=== PATIENT | male | born 1965 | race African-American/Black ===

== ENCOUNTER 2020-02-04 12:54 | Outpatient (REF) | payer OTHER, SELFPAY ==
--- NOTE | 2020-02-04 14:12 | CT_ITS ---
EXAMINATION: CT ANGIOGRAM CHEST CLINICAL INFORMATION: Precordial pain. COMPARISON: None TECHNIQUE: Multiple axial images were obtained through the chest after the administration of 70 mL of Omnipaque 350 intravenous contrast. Extensive vascular post-processing including two-dimensional and three-dimensional reformatted images were created and reviewed on an independent workstation. This CT examination was performed using dose optimization techniques as appropriate, variously including the following: *Automated exposure control *Adjustment of mA and/or kV according to patient size (this includes techniques or standardized protocols for targeted exams where dose is matched to indication/reason for exam; i.e. extremities or head) *Use of iterative reconstruction technique DLP: 147 mGy-cm FINDINGS: There is good opacification of pulmonary artery and its branches. There is no intraluminal filling defect, narrowing. The thoracic aorta is of normal caliber without aneurysm or dissection. The central trachea and the bronchi widely patent. The thyroid lobes are symmetrical and normal. No mediastinal mass or lymph node seen. No pericardial effusion. The lungs are well-expanded and clear of acute pneumonic process. There is a 3 mm subpleural nodule left lateral basal segment image 46/6 a 3 minute nodule right upper lobe axial image 19/5. No additional nodules, mass or consolidation seen. There is no pleural effusion, calcification or effusion. The axilla and chest wall appears unremarkable. Imaging through the upper abdomen reveals visualized liver and spleen to be unremarkable. Bone windows reveal no lytic or sclerotic process. CT/CT angio chest IMPRESSION: No evidence of PE.. No evidence of aortic aneurysm or dissection. No mediastinal mass or hematoma. 3 mm lung nodules. A follow-up CT chest can be performed in 12 months.
[2020-02-04 14:52] LABS: Anion Gap 8 (12-20); Blood Urea Nitrogen 11 mg/dL (9-16); Calcium 9.1 mg/dL (8.4-10.2); Carbon Dioxide 31 mmol/L (22-29); Chloride 104 mmol/L (96-108); Estimated Glomerular Filt Rate > 60; Glucose Random 87 mg/dL (60-115); Potassium 4.4 mmol/l (3.3-5.1); Sodium 139 mmol/L (135-145)
[2020-02-04 14:53] LABS: Troponin-I High Sensitivity < 3.5 ng/L (<3.5-35.0)
[2020-02-04] MEDS: iohexoL 350 MG/ML 100 ML INFUS..BTL IV (15:41)
== END 2020-02-04 12:55 | disposition home or self-care (01) ==
LOC: HO.CT 12:54
PROVIDERS: PCP Internal Medicine; Visit Provider Internal Medicine
DX: I50.22 Chronic systolic (congestive) heart failure (principal); R07.2 Precordial pain
CPT/HCPCS: 71275; 80048; 84484; 93005; Q9967

== ENCOUNTER 2020-02-11 12:08 | Day surgery (SDC) | payer OTHER, SELFPAY ==
--- NOTE | 2020-02-09 12:30 | HO.ANESPROP2 ---
Documented by User: Esperanza Stovall 02/09/20 13:13 HPI - Anesthesia Eval Consult details Narrative: 54yo M for Upper Endoscopy Per T/C with Dr Oneal, may proceed without further workup. CTA remains pending. [facility] Past Medical History Medical History (Updated 02/04/20 @ 13:57 by Marty Oneal MD) JEREMY (obstructive sleep apnea) Family History Family History (Updated 02/04/20 @ 13:03 by LAUREN Ayala) Father No problems noted. Mother No problems noted. Surgical History Surgical History (Updated 02/04/20 @ 13:03 by LAUREN Ayala) No pertinent past surgical history Social History Social History (Updated 02/04/20 @ 13:03 by LAUREN Ayala) Smoking Status: Never smoker Second Hand Smoke Exposure: No Use of substances other than those prescribed or required for medical reasons: No Advance Directives: No Advance Directives Information Provided: No Meds Allergies Allergy/AdvReac Type Severity Reaction Status Date / Time No Known Allergies Allergy Unverified 11/06/19 19:44 [No Known Allergies*] Home Medications Medication Instructions Recorded Confirmed Type omeprazole 20 mg capsule,delayed 20 mg PO DAILY PRN 02/04/20 02/04/20 History release Exam Exam Date and Time: February 09, 2020 1230 Pertinent Lab Results Pertinent Lab Results: Laboratory Tests 02/04/20 14:10 Sodium 139 Potassium 4.4 Chloride 104 Carbon Dioxide 31 H BUN 11 Creatinine 1.13 Narrative Narrative: EKG 01/2020: NSR Assessment and Plan Assessment Anesthesia Assessment: Chart Reviewed Documented by User: Reema Zhang 02/11/20 12:33 [facility] Past Medical History Medical History (Updated 02/04/20 @ 13:57 by Marty Oneal MD) JEREMY (obstructive sleep apnea) Family History Family History (Updated 02/04/20 @ 13:03 by LAUREN Ayala) Father No problems noted. Mother No problems noted. Surgical History Surgical History (Updated 02/04/20 @ 13:03 by LAUREN Ayala) No pertinent past surgical history Social History Social History (Updated 02/04/20 @ 13:03 by LAUREN Ayala) Smoking Status: Never smoker Second Hand Smoke Exposure: No Use of substances other than those prescribed or required for medical reasons: No Advance Directives: No Advance Directives Information Provided: No Meds Allergies Allergy/AdvReac Type Severity Reaction Status Date / Time No Known Allergies Allergy Unverified 11/06/19 19:44 [No Known Allergies*] Home Medications Medication Instructions Recorded Confirmed Type omeprazole 20 mg capsule,delayed 20 mg PO DAILY PRN 02/04/20 02/04/20 History release Exam Airway Mallampati Class: II (2 caps lateral) TM Dist: >3cm Neck ROM: Full Heart: RRR Lungs: CTA BL Assessment and Plan Assessment Anesthesia Assessment: Anesthesia Plan Discussed and Chart Reviewed Final Anesthetic Review NPO: Yes ASA Class: II Final Preanesthetic Review: Meds/Allgs Chart Reviewed and Consent Obtained/Reviewed Patient Risk: Intermediate Procedure Risk: Intermediate Anesthetic Plan Anesthetic Plan: MAC: Disposition: Standard PACU
[2020-02-10 10:11] VITALS: BMI 31.4
[2020-02-11 12:35] VITALS: BP 123/90; PULSE 72; RESP 18; TEMP 36.1; O2SAT 100
--- NOTE | 2020-02-11 13:02 | MHC.SHP ---
Pre-Procedural Eval Section A The patient is an INPATIENT: No Changes since office visit: No Cold of Flu in the past 2 weeks, No New Medical Problems, No Changes in Medication and No Patient answered all questions The History & Physical has been completed within 30 days and I have reviewed it.: Yes Section B Chief Complaint: reflux Allergies: Allergies Allergy/AdvReac Type Severity Reaction Status Date / Time No Known Allergies Allergy Unverified 11/06/19 19:44 [No Known Allergies*] Plan I have reviewed the history and physical and performed a pertinent physical examination on my patient. No changes have occurred unless specified.
--- NOTE | 2020-02-11 13:17 | PM.OP ---
Brief Operative Note Date of Service: 02/11/20 Pre-op diagnosis: GERD Post-op diagnosis: same (normal egd) Procedure: EGD Surgeon: Timur Victor Anesthesia: MAC Estimated blood loss (mL): 5 Pathology: other (duodenal, antral, egj biopsies) Condition: stable Disposition: PACU
[2020-02-11 13:21] VITALS: BP 101/54; PULSE 77; RESP 12; TEMP 36.2; O2SAT 98
--- NOTE | 2020-02-11 13:26 | HO.POSTANES ---
Post Anesthesia Evaluation Post Anesthesia Evaluation Vital Signs: Vital Signs Temp Pulse Resp BP Pulse Ox 02/11/20 12:35 97.0 F 72 18 123/90 H 100 Anesthesia: General Mental Status: Awake Pain Control: Satisfactory Nausea/Vomiting: None Hydration: Adequate Anesthesia-Related Issues: No Anes. Related Issues
[2020-02-11 13:36] VITALS: BP 115/69; PULSE 68; RESP 16; O2SAT 98
--- NOTE | 2020-02-11 13:41 | OP_ITS ---
SURGEON: Timur Victor MD INDICATIONS: Chest pain and gastroesophageal reflux disease. PREOPERATIVE DIAGNOSIS: POSTOPERATIVE DIAGNOSIS: PROCEDURE PERFORMED: Upper endoscopy with biopsy. ESTIMATED BLOOD LOSS: COMPLICATIONS: ANESTHESIA: ASSISTANTS: SPECIMENS: MEDICATIONS: Monitored anesthesia care. DESCRIPTION OF PROCEDURE: History and physical performed. The risks and benefits of the procedure were explained to the patient and informed consent was obtained. The patient was placed in the left lateral decubitus position. The Olympus video gastroscope was introduced into the esophagus, stomach, and duodenum. Examination was performed and the scope was removed. He tolerated the procedure well and was taken to recovery area in stable condition. FINDINGS: Esophagus: The esophagus was normal. There was no esophagitis. Stomach: The stomach showed no evidence of masses, ulcers, or polyps. Duodenum: The bulb and second portion were normal. The pylorus was slightly stenotic, but the scope passed easily through this. Biopsies were obtained from the second portion of the duodenum, the antrum, and the EG junction. IMPRESSION: Basically normal upper endoscopy. RECOMMENDATION: Follow up biopsy results. MD MARYLOU South/SMOOTH / [id number]
[2020-02-11 13:51] VITALS: BP 115/72; PULSE 80; RESP 16; O2SAT 99
[2020-02-11 14:07] VITALS: BP 131/80; PULSE 72; RESP 16; TEMP 36.2; O2SAT 99
== END 2020-02-11 14:20 | disposition home or self-care (01) ==
PROVIDERS: PCP Internal Medicine; Visit Provider Internal Medicine Gastroenterology
PROC: 0DJ08ZZ Inspection of Upper Intestinal Tract, Via Natural or Artificial Opening Endoscopic (ICD-10-PCS; CPT 43235; principal; 2020-02-11 13:00)
DX: K21.9 Gastro-esophageal reflux disease without esophagitis (principal); R07.9 Chest pain, unspecified; J30.2 Other seasonal allergic rhinitis; G47.33 Obstructive sleep apnea (adult) (pediatric); Z79.899 Other long term (current) drug therapy
CPT/HCPCS: 43239; 88305; 88342; J2250

== ENCOUNTER 2020-04-26 14:50 | Emergency (ER) | payer OTHER, SELFPAY ==
--- NOTE | 2020-04-26 | ECG_ITS ---
Test Reason : CHEST PAIN Blood Pressure : / mmHG Vent. Rate : 067 BPM Atrial Rate : 067 BPM P-R Int : 156 ms QRS Dur : 092 ms QT Int : 396 ms P-R-T Axes : 065 024 017 degrees QTc Int : 418 ms Normal sinus rhythm Septal infarct , age undetermined Abnormal ECG When compared with ECG of 13-NOV-2018 16:13, Criteria for septal infarct present Referred By: Generic ED Physician Electronically Signed By:Jaylon Laird
--- NOTE | ~2020-04-26 | XR_ITS ---
EXAMINATION: XR CHEST CLINICAL INFORMATION: Chest pain COMPARISON: 11/13/2018 TECHNIQUE: Frontal view of the chest was obtained. FINDINGS: Cardiac leads overlie the chest. The lungs are well expanded. There is no focal consolidation, edema, or effusion. No pneumothorax. The cardiomediastinal silhouette is within normal limits. No acute osseous abnormality. XR/XR chest 1V IMPRESSION: Clear lungs.
[2020-04-26 14:55] VITALS: BP 143/68; PULSE 71; RESP 16; TEMP 37; O2SAT 97; BMI 28.7
--- NOTE | 2020-04-26 16:21 | ED.CHESTPAIN ---
HPI - Chest Pain General Chief Complaint: Chest Pain Stated Complaint: chest pain Time Seen by Provider: 04/26/20 16:10 Source: patient Mode of arrival: ambulatory Limitations: no limitations History of Present Illness HPI narrative: Patient 54 years old no risk factor for coronary artery disease been having this left-sided scapular pain radiated to left front of the chest off and on for last few months was seen here in January 2020 had a CTA chest and workup was negative for last 36 hours patient has been having similar pain started in left scapular area going to the left chest constant pain get worse in between<del>.</del> complaint: chest discomfort Related Data Home Medications Medication Instructions Recorded Confirmed omeprazole 20 mg capsule,delayed 20 mg PO DAILY PRN 02/04/20 02/04/20 release Allergies Allergy/AdvReac Type Severity Reaction Status Date / Time No Known Allergies Allergy Unverified 11/06/19 19:44 [No Known Allergies*] Review of Systems Review of Systems: Constitutional : No Weight loss, No Fever, No Chills ENT/Mouth : No sore throat, No Rhinorrhea Eyes: No Eye Pain, No Swelling Cardiovascular :++Chest Pain, no palpitations Respiratory : No Cough, No Sputum, no shortness of breath Gastrointestinal : no Nausea, No Vomiting, No Diarrhea, No abdominal Pain, no black stools Genitourinary : No Dysuria, No Urinary Frequency Musculoskeletal : No joint pain, No Myalgias, No Joint Swelling Skin : No Skin Lesions, No rash Neuro : No Weakness, No Numbness, No Dizziness, No Headache Psych : No Anxiety/Panic, No Depression Heme/Lymph: No Bruising, No Lymphadenopathy Endocrine : No Polyuria, No Polydipsia All other systems reviewed and are negative [facility] Past Medical History Medical History JEREMY (obstructive sleep apnea) Surgical History No pertinent past surgical history Family History Family History Father No problems noted. Mother No problems noted. Social History Social History Smoking Status: Never smoker Second Hand Smoke Exposure: No Advance Directives: No Advance Directives Information Provided: No Physical Exam Vital Signs: Vital Signs: Last Vital Signs Temp 98.6 F 04/26/20 14:55 Pulse 71 04/26/20 14:55 Resp 16 04/26/20 14:55 BP 143/68 H 04/26/20 14:55 Pulse Ox 97 04/26/20 14:55 Body Mass Index 28.7 Appearance: Alert. Oriented X3. No acute distress. Eyes: Pupils equal, round and reactive to light. ENT: Pharynx normal. Neck: Normal inspection. Neck supple. CVS: Normal heart rate and rhythm. Pulses normal. Respiratory: No respiratory distress. Breath sounds normal. No chest wall tenderness Abdomen: Soft and nontender. Bowel sounds are present, no mass palpable, no CVA tenderness Skin: Skin warm and dry. Normal skin color. Normal skin turgor. Extremities: No lower extremity edema. Neuro: Oriented X 3. No motor deficit. No sensory deficit. MDM - Chest Pain MDM Narrative Medical decision making narrative: Patient with a chest pain off and on for long time normal EKG normal troponin now patient complaining of pain in base of the left side of the neck. Case discussed with Dr. Laird box stapler plan to discharge the patient home and plan to do outpatient cardiac catheterization on 04/29 Differential Diagnosis Differential diagnosis: Likely atypical chest pain Medical Records Data Attestation: I reviewed the patient's medical records. Lab Data Attestation: I reviewed the patient's lab results. Result diagrams: 04/26/20 16:46 04/26/20 16:46 Labs: Lab Results 04/26/20 04/26/20 04/26/20 Range/Units 16:46 16:46 16:46 WBC 4.5 L (4.8-10.8) X10*3/uL RBC 5.16 (4.60-5.80) X10*6/uL Hgb 14.1 (14.0-18.0) g/dl Hct 43.7 (42-52) % MCV 84.7 (80-98) fL MCH 27.3 (27.0-33.0) pg MCHC 32.3 (31.0-36.0) g/dl RDW 13.2 (11.0-16.0) % Plt Count 190 (160-400) X10*3/uL MPV 10.3 (9.4-12.4) fL Immature Gran % (Auto) 0.2 (0.0-0.4) % Neut % (Auto) 46.5 (45-73) % Lymph % (Auto) 46.4 H (20-40) % [place] % (Auto) 4.9 (2-11) % Eos % (Auto) 1.3 (0-4) % Baso % (Auto) 0.7 (0-2) % Lymph # (Auto) 2.1 (1.2-4.9) X10*3/uL [place] # (Auto) 0.2 (0.1-1.2) X10*3/uL Eos # (Auto) 0.1 (0.0-0.4) X10*3/uL Baso # (Auto) 0.0 (0.0-0.2) X10*3/uL Abs Immat Gran (auto) 0.01 (0.00-0.03) X10*3/uL Absolute Neuts (auto) 2.1 (2.0-8.3) X10*3/uL Absolute Nucleated RBC 0.000 (0.0-0.012) X10*3/uL Nucleated RBC % (auto) 0.0 (0.0-0.2) /100WBC PT 13.5 H (10.8-13.0) SEC INR 1.1 (0.9-1.1) APTT 27.7 (24.1-38.0) SEC D-Dimer 209 NG/ML Sodium 142 (135-145) mmol/L Potassium 4.1 (3.3-5.1) mmol/L Chloride 105 (96-108) mmol/L Carbon Dioxide 27 (22-29) mmol/L Anion Gap 14 (12-20) BUN 10 (9-16) mg/dL Creatinine 1.03 (0.5-1.4) mg/dL Estim Creat Clear Calc 90.7 Estimated GFR > 60 Random Glucose 84 (60-115) mg/dL Calcium 9.2 (8.4-10.2) mg/dL Total Bilirubin 0.6 (0.0-1.0) mg/dL Direct Bilirubin 0.3 (0.0-0.5) mg/dL AST 22 (5-37) U/L ALT 31 (0-40) U/L Alkaline Phosphatase 71 (39-117) U/L Troponin I High Sens (<3.5-35.0) ng/L Total Protein 7.2 (6.5-8.0) g/dL Albumin 4.3 (3.5-5.0) g/dL 04/26/20 Range/Units 16:46 WBC (4.8-10.8) X10*3/uL RBC (4.60-5.80) X10*6/uL Hgb (14.0-18.0) g/dl Hct (42-52) % MCV (80-98) fL MCH (27.0-33.0) pg MCHC (31.0-36.0) g/dl RDW (11.0-16.0) % Plt Count (160-400) X10*3/uL MPV (9.4-12.4) fL Immature Gran % (Auto) (0.0-0.4) % Neut % (Auto) (45-73) % Lymph % (Auto) (20-40) % [place] % (Auto) (2-11) % Eos % (Auto) (0-4) % Baso % (Auto) (0-2) % Lymph # (Auto) (1.2-4.9) X10*3/uL [place] # (Auto) (0.1-1.2) X10*3/uL Eos # (Auto) (0.0-0.4) X10*3/uL Baso # (Auto) (0.0-0.2) X10*3/uL Abs Immat Gran (auto) (0.00-0.03) X10*3/uL Absolute Neuts (auto) (2.0-8.3) X10*3/uL Absolute Nucleated RBC (0.0-0.012) X10*3/uL Nucleated RBC % (auto) (0.0-0.2) /100WBC PT (10.8-13.0) SEC INR (0.9-1.1) APTT (24.1-38.0) SEC D-Dimer NG/ML Sodium (135-145) mmol/L Potassium (3.3-5.1) mmol/L Chloride (96-108) mmol/L Carbon Dioxide (22-29) mmol/L Anion Gap (12-20) BUN (9-16) mg/dL Creatinine (0.5-1.4) mg/dL Estim Creat Clear Calc Estimated GFR Random Glucose (60-115) mg/dL Calcium (8.4-10.2) mg/dL Total Bilirubin (0.0-1.0) mg/dL Direct Bilirubin (0.0-0.5) mg/dL AST (5-37) U/L ALT (0-40) U/L Alkaline Phosphatase (39-117) U/L Troponin I High Sens < 3.5 (<3.5-35.0) ng/L Total Protein (6.5-8.0) g/dL Albumin (3.5-5.0) g/dL ECG Data ECG #1: Attestation: I personally reviewed and interpreted this ECG as follows: Interpretation: Normal sinus rhythm heart rate 67 beats per minute poor progression of R-waves normal axis normal intervals no acute ischemia Discharge Plan Discharge Clinical Impression: Chest pain Patient Disposition: Home, Self-Care Instructions: Chest Pain (ED) Additional Instructions: Continue take baby aspirin daily. Etiology of chest pain is not very clear continue baby aspirin follow with box stapler Prescriptions: No Action omeprazole 20 mg capsule,delayed release(DR/EC) 20 mg PO DAILY PRNRF: 0 Referrals: Marty Oneal MD [Physician] - 2 days
[2020-04-26 16:50] LABS: MANUAL DIFF FLAG NO
[2020-04-26 16:54] LABS: Basophils Percent Auto 0.7 % (0-2); Eosinophils Absolute Auto 0.1 X10*3/uL (0.0-0.4); Eosinophils Percent Auto 1.3 % (0-4); Hematocrit 43.7 % (42-52); Hemoglobin 14.1 g/dl (14.0-18.0); Imm Gran Abs Auto 0.01 X10*3/uL (0.00-0.03); Imm Gran Pct Auto 0.2 % (0.0-0.4); Lymphocytes Absolute Auto 2.1 X10*3/uL (1.2-4.9); Lymphocytes Percent Auto 46.4 % (20-40); Mean Corpuscular HGB Conc 32.3 g/dl (31.0-36.0); Mean Corpuscular Hemoglobin 27.3 pg (27.0-33.0); Mean Corpuscular Volume 84.7 fL (80-98); Mean Platelet Volume 10.3 fL (9.4-12.4); Monocytes Absolute Auto 0.2 X10*3/uL (0.1-1.2); Monocytes Percent Auto 4.9 % (2-11); Neutrophils Absolute Auto 2.1 X10*3/uL (2.0-8.3); Neutrophils Percent Auto 46.5 % (45-73); Platelet Count 190 X10*3/uL (160-400); Red Blood Count 5.16 X10*6/uL (4.60-5.80); Red Cell Distribution Width 13.2 % (11.0-16.0); White Blood Count 4.5 X10*3/uL (4.8-10.8)
[2020-04-26 16:58] LABS: INTERNATIONAL NORM RATIO 1.1 (0.9-1.1); Prothrombin Time 13.5 SEC (10.8-13.0)
[2020-04-26 17:00] LABS: Partial Thromboplastin Time 27.7 SEC (24.1-38.0)
[2020-04-26 17:01] LABS: D Dimer 209 NG/ML
[2020-04-26] MEDS: Nitroglycerin 2 % Oint 1 GM Packet 0.5 INCH TRANSDERMA (17:08)
[2020-04-26 17:12] LABS: Alanine Aminotransferase 31 U/L (0-40); Albumin Level 4.3 g/dL (3.5-5.0); Alkaline Phosphatase 71 U/L (39-117); Anion Gap 14 (12-20); Aspartate Amino Transferase 22 U/L (5-37); Bilirubin Direct 0.3 mg/dL (0.0-0.5); Bilirubin Total 0.6 mg/dL (0.0-1.0); Blood Urea Nitrogen 10 mg/dL (9-16); Calcium 9.2 mg/dL (8.4-10.2); Carbon Dioxide 27 mmol/L (22-29); Chloride 105 mmol/L (96-108); Creatinine Clr Calc Pharmacy 90.7; Estimated Glomerular Filt Rate > 60; Glucose Random 84 mg/dL (60-115); Potassium 4.1 mmol/L (3.3-5.1); Sodium 142 mmol/L (135-145); Total Protein 7.2 g/dL (6.5-8.0)
[2020-04-26 17:17] LABS: Troponin-I High Sensitivity < 3.5 ng/L (<3.5-35.0)
[2020-04-26] MEDS: Ketorolac Tromethamine 30 MG/ML VIAL IVPUSH (17:57)
== END 2020-04-26 18:30 | disposition home or self-care (01) ==
PROVIDERS: Emergency Provider Internal Medicine; PCP Internal Medicine
DX: R07.9 Chest pain, unspecified (principal)
CPT/HCPCS: 36415; 71045; 80048; 80076; 84484; 85025; 85379; 85610; 85730; 93005; 96374; 99283; 99284; J1885

== ENCOUNTER 2020-04-27 21:47 | Outpatient (REF) | payer OTHER, SELFPAY ==
[2020-04-27 22:36] LABS: COVID-19 Test Negative (Negative)
== END 2020-04-27 21:48 | disposition home or self-care (01) ==
LOC: HO.EMPCOV 21:47
PROVIDERS: Visit Provider Internal Medicine
DX: Z20.822 Contact with and (suspected) exposure to COVID-19 (principal)
CPT/HCPCS: 36415; 87635

== ENCOUNTER → 2020-05-12 15:08 | Outpatient (BNVA) | payer OTHER, SELFPAY | PROVIDERS: PCP Internal Medicine; Visit Provider Nurse Practitioner Family ==

== ENCOUNTER 2020-08-11 18:41 | Emergency (ER) | payer OTHER, SELFPAY ==
--- NOTE | ~2020-08-11 | XR_ITS ---
EXAMINATION: XR CHEST CLINICAL INFORMATION: Chest pain COMPARISON: 04/26/2020 TECHNIQUE: Frontal view of the chest was obtained. FINDINGS: No significant abnormality is noted involving the heart, lungs, mediastinum, bony thorax or soft tissues. XR/XR chest 1V IMPRESSION: Unremarkable examination.
[2020-08-11 18:46] VITALS: BP 125/69; PULSE 72; RESP 18; TEMP 36.5; O2SAT 98; BMI 28.7
--- NOTE | 2020-08-11 18:52 | ECG_ITS ---
Test Reason : CHEST PAIN Blood Pressure : / mmHG Vent. Rate : 065 BPM Atrial Rate : 065 BPM P-R Int : 158 ms QRS Dur : 088 ms QT Int : 396 ms P-R-T Axes : 062 014 006 degrees QTc Int : 411 ms Normal sinus rhythm Normal ECG When compared with ECG of 26-APR-2020 15:31, No significant change was found Referred By: Generic ED Physician Electronically Signed By:Jaylon Laird
--- NOTE | 2020-08-11 19:28 | PC.NURSE ---
PT TO ROOM, CHG INTO GOWN AND ON MONITOR WITH A HR OF 84. PT C/O CHEST PRESSURE X 3 HOURS. FAMILY AT BEDSIDE. PT A&OX3, SKIN W/D. RESPIRATIONS EASY, N/L. PT AWAITING FOR MD'S EVAL.
[2020-08-11 19:29] LABS: MANUAL DIFF FLAG NO
[2020-08-11 19:31] LABS: Basophils Percent Auto 0.6 % (0-2); Eosinophils Absolute Auto 0.2 X10*3/uL (0.0-0.4); Eosinophils Percent Auto 2.8 % (0-4); Hemoglobin 14.1 g/dl (14.0-18.0); Imm Gran Abs Auto 0.02 X10*3/uL (0.00-0.03); Imm Gran Pct Auto 0.4 % (0.0-0.4); Lymphocytes Absolute Auto 2.8 X10*3/uL (1.2-4.9); Lymphocytes Percent Auto 52.8 % (20-40); Mean Corpuscular HGB Conc 32.8 g/dl (31.0-36.0); Mean Corpuscular Volume 85.3 fL (80-98); Mean Platelet Volume 8.8 fL (9.4-12.4); Monocytes Absolute Auto 0.4 X10*3/uL (0.1-1.2); Monocytes Percent Auto 7.6 % (2-11); Neutrophils Absolute Auto 1.9 X10*3/uL (2.0-8.3); Neutrophils Percent Auto 35.8 % (45-73); Platelet Count 218 X10*3/uL (160-400); Red Blood Count 5.04 X10*6/uL (4.60-5.80); White Blood Count 5.4 X10*3/uL (4.8-10.8)
[2020-08-11 19:52] LABS: Anion Gap 12 (12-20); Blood Urea Nitrogen 10 mg/dL (9-16); Calcium 9.5 mg/dL (8.4-10.2); Carbon Dioxide 28 mmol/L (22-29); Chloride 105 mmol/L (96-108); Creatinine Clr Calc Pharmacy 80.5; Estimated Glomerular Filt Rate > 60; Glucose Random 93 mg/dL (60-115); Potassium 4.2 mmol/L (3.3-5.1); Sodium 141 mmol/L (135-145)
[2020-08-11 19:56] LABS: Troponin-I High Sensitivity < 3.5 ng/L (<3.5-35.0)
[2020-08-11 20:04] VITALS: BP 119/70; PULSE 59; RESP 18; O2SAT 99
--- NOTE | 2020-08-11 23:22 | ED_ITS ---
HPI - Chest Pain General Chief Complaint: Chest Pain Stated Complaint: chest tightness Time Seen by Provider: 08/11/20 23:21 Source: patient and family () Mode of arrival: ambulatory Limitations: no limitations History of Present Illness HPI narrative: 54-year-old male who presents emergency department for evaluation of chest pain x3 hours. The patient's pain came on gradually at around 6:00 p.m.. Patient states that he just got home from work and was sitting and was not under any stress. The pain started gradually. The patient points to his left anterior chest when asked to localize the pain. He describes the pain as a constant pressure-like pain. He did have some associated heartburn like symptom s. He states that the top of his head felt cold and he felt very fatigued/tired. He denied diaphoresis, nausea, radiation of the pain to his neck, jaw, arms or back. He had no associated shortness of breath or dyspnea on exertion. The patient has not gone on any long trips. He denies any pain or swelling of his extremities. The patient has had several other episodes of this type of chest pain over the past several months. The patient's waste management recycling technician is Dr. Oneal. The patient did have a cardiac catheterization earlier this year which was normal with no coronary artery disease. He states that he also had an endoscopy to workup his chest pain which revealed gastritis only. Related Data Home Medications Medication Instructions Recorded Confirmed omeprazole 20 mg capsule,delayed 20 mg PO DAILY PRN 02/04/20 05/12/20 release Allergies Allergy/AdvReac Type Severity Reaction Status Date / Time No Known Allergies Allergy Verified 08/11/20 18:46 [No Known Allergies*] Review of Systems Review of Systems: Yes all other systems are reviewed and are negative [facility] Past Medical History [facility] Narrative: Past medical history: Gastritis. 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 He denies tobacco use, he states that he did smoke for 2-3 years when he was in college. He denies alcohol use. Denies drug use. Medical History Discomfort in chest Gastritis JEREMY (obstructive sleep apnea) Surgical History History of endoscopy S/P cardiac cath Family History Family History Father No problems noted. Mother No problems noted. Social History Social History Second Hand Smoke Exposure: No Advance Directives: No Advance Directives Information Provided: Yes Physical Exam Vital Signs: Vital Signs: Last Vital Signs Temp 97.7 F 08/11/20 18:46 Pulse 59 08/11/20 20:04 Resp 18 08/11/20 20:04 BP 119/70 08/11/20 20:04 Pulse Ox 99 08/11/20 20:04 Body Mass Index 28.7 Const: General: cooperative and healthy appearing Orientation/conscio usness: oriented to person and oriented to place Limitations: no limitations HENMT: Head: Yes normal to inspection, Yes normocephalic and Yes atraumatic Ears: external ears normal General nose exam: Normal external nose present Face and sinus: Yes normal facial exam Mouth: Normal oral and palatal mucosa present Throat: Yes posterior oropharynx normal Eyes: Periorbital: periorbital findings normal Eyelids: Yes eyelids normal Conjunctivae: conjunctivae normal Sclerae: sclerae normal Corneas: corneas normal Pupils: Equal, round and reactive pupils present Direct Ophthalmoscopy: normal light reflex Neck: Neck: Yes full ROM, Yes no lymphadenopathy, Yes no meningeal signs, Yes trachea midline and Yes supple Chest: Chest palpation & inspection: normal inspection of the chest and normal palpation of entire chest wall Resp: Effort & Inspection: normal respiratory effort and able to speak in complete sentences Auscultation: clear to auscultation bilaterally Cardio: Rate: regular rate Rhythm: regular rhythm Heart sounds: S1 normal heart sound present, S2 normal heart sound present and no murmurs GI: Inspection: Yes normal to inspection Palpation (GI): Soft to palpation, nontender, no guarding, not rigid and No hepatosplenomegaly present : General: Yes no CVA tenderness Back/Spine/Pelvis: Back: no CVA tenderness Cervical Spine: normal cervical lordosis Thoracic/Lumbar Spine: thoracic and lumbar spine normal to inspection Skin: Lesions: no lesions Rashes: no rashes Wounds: no wounds Neuro: Other: Neurologic exam appears to be nonfocal General: oriented to person, oriented to place and no meningeal signs Cranial nerves: Yes Equal, round and reactive pupils present Cognition (Neuro): normal cognition Extrem: General: Yes normal to inspection and Yes full ROM Psych: Appearance: well kempt Mental Status: mental status grossly normal Speech and movement: Normal speech and movement present Affect: normal affect Attitude: cooperative Thought process: Normal thought process present Course Course Course Narrative: 54-year-old male who presents emergency department for evaluation have chest pain x3 hours which came on at rest. The patient has had several episodes of this type of chest pain over the past several months and has had a negative cardiac catheterization. He has also had and endoscopic evaluation which revealed gastritis. The patient's physical examination was unremarkable. Patient's laboratory evaluation was unremarkable with a nondetectable troponin and a normal D-dimer given his age. The patient's chest x-ray in 12 EKG were unremarkable as well. At this time, I do not think the patient's pain was secondary to acute myocardial injury. The patient and his were concerned about possible coronary spasm/Prinzmetal angina. I told the patient that he can follow-up with his waste management recycling technician and discuss this possible diagnosis and discuss whether or not sublingual nitroglycerin would be santhosh eficial. The patient was given verbal and printed instructions prior to discharge. The patient was advised to follow-up with their PCP in 2 days and to return to the emergency department if their symptoms get worse or if they develop any new symptoms that are concerning to them MDM - Chest Pain Lab Data Result diagrams: 08/11/20 19:14 08/11/20 19:15 Labs: Lab Results 08/11/20 08/11/20 08/11/20 Range/Units 19:14 19:14 19:15 WBC 5.4 (4.8-10.8) X10*3/uL RBC 5.04 (4.60-5.80) X10*6/uL Hgb 14.1 (14.0-18.0) g/dl Hct 43.0 (42-52) % MCV 85.3 (80-98) fL MCH 28.0 (27.0-33.0) pg MCHC 32.8 (31.0-36.0) g/dl RDW 13.0 (11.0-16.0) % Plt Count 218 (160-400) X10*3/uL MPV 8.8 L (9.4-12.4) fL Immature Gran % (Auto) 0.4 (0.0-0.4) % Neut % (Auto) 35.8 L (45-73) % Lymph % (Auto) 52.8 H (20-40) % Emmet % (Auto) 7.6 (2-11) % Eos % (Auto) 2.8 (0-4) % Baso % (Auto) 0.6 (0-2) % Lymph # (Auto) 2.8 (1.2-4.9) X10*3/uL Emmet # (Auto) 0.4 (0.1-1.2) X10*3/uL Eos # (Auto) 0.2 (0.0-0.4) X10*3/uL Baso # (Auto) 0.0 (0.0-0.2) X10*3/uL Abs Immat Gran (auto) 0.02 (0.00-0.03) X10*3/uL Absolute Neuts (auto) 1.9 L (2.0-8.3) X10*3/uL Absolute Nucleated RBC 0.000 (0.0-0.012) X10*3/uL Nucleated RBC % (auto) 0.0 (0.0-0.2) /100WBC Sodium 141 (135-145) mmol/L Potassium 4.2 (3.3-5.1) mmol/L Chloride 105 (96-108) mmol/L Carbon Dioxide 28 (22-29) mmol/L Anion Gap 12 (12-20) BUN 10 (9-16) mg/dL Creatinine 1.16 (0.5-1.4) mg/dL Estim Creat Clear Calc 80.5 Estimated GFR > 60 Random Glucose 93 (60-115) mg/dL Calcium 9.5 (8.4-10.2) mg/dL Troponin I High Sens < 3.5 (<3.5-35.0) ng/L ECG Data ECG #1: Interpretation: 1858: Normal sinus rhythm rate of 65, normal KS interval, QRS duration and QTC interval, inverted T-wave in lead 3, no ST segment elevation, no ST segment depression, no PACs, no PVCs, no significant change compared to April 26, 2020 EKG. Discharge Plan Discharge Clinical Impression: Chest pain Qualifiers: Chest pain type: unspecified Qualified Code(s): R07.9 - Chest pain, unspecified Patient Disposition: Home, Self-Care Instructions: Chest Pain (ED) Additional Instructions: Your laboratory evaluation was normal and you had a nondetectable high sensitivity troponin which is reassuring. Your EKG was normal. Your chest x-ray was unremarkable. At this time, I do not think that you had a heart attack is the cause of your pain. It is possible that your pain may be secondary to cardiac ischemia and you may have Prinzmetal angina, you should discuss this with your waste management recycling technician an ask about using nitroglycerin for this pain. It is also possible your pain may be secondary to your gastritis causing esophageal spasm. This may also improve with nitroglycerin. Follow-up with your waste management recycling technician in 2 days. Please return to the emergency department if your symptoms get worse or if you develop any symptoms that are concerning to you. Prescriptions: No Action omeprazole 20 mg capsule,delayed release(DR/EC) 20 mg PO DAILY PRNRF: 0 Referrals: Marty Oneal MD [Physician] - 2 days (3 hours of chest pain prior to coming to the ED, associated with fatigue only, negative workup with non detectable high sensitivity troponin. Normal cardiac catheterization recently. 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
== END 2020-08-12 00:17 | disposition home or self-care (01) ==
PROVIDERS: Emergency Provider Emergency Medicine Emergency Medical Services
DX: R07.9 Chest pain, unspecified (principal)
CPT/HCPCS: 36415; 71045; 80048; 84484; 85025; 93005; 99283; 99284

== ENCOUNTER 2020-12-23 15:32 | Outpatient (REF) | payer OTHER, SELFPAY ==
[2020-12-23 16:47] LABS: MANUAL DIFF FLAG NO
[2020-12-23 16:49] LABS: Basophils Percent Auto 0.8 % (0-2); Eosinophils Absolute Auto 0.1 X10*3/uL (0.0-0.4); Eosinophils Percent Auto 2.4 % (0-4); Hematocrit 44.5 % (42.0-52.0); Hemoglobin 14.6 g/dl (14.0-18.0); Imm Gran Abs Auto 0.05 X10*3/uL (0.00-0.03); Lymphocytes Absolute Auto 2.5 X10*3/uL (1.2-4.9); Lymphocytes Percent Auto 50.1 % (20-40); Mean Corpuscular HGB Conc 32.8 g/dl (31.0-36.0); Mean Corpuscular Volume 85.2 fL (80.0-98.0); Mean Platelet Volume 8.6 fL (9.4-12.4); Monocytes Absolute Auto 0.3 X10*3/uL (0.1-1.2); Neutrophils Percent Auto 39.7 % (45-73); Platelet Count 265 X10*3/uL (160-400); Red Blood Count 5.22 X10*6/uL (4.60-5.80); Red Cell Distribution Width 12.9 % (11.0-16.0)
[2020-12-23 17:10] LABS: Blood Urea Nitrogen 9 mg/dL (9-16); Calcium 9.6 mg/dL (8.4-10.2); Estimated Glomerular Filt Rate 58; Glucose Random 83 mg/dL (60-115)
[2020-12-23 17:23] LABS: Anion Gap 11 (12-20); Carbon Dioxide 30 mmol/L (22-29); Chloride 105 mmol/L (96-108); Potassium 4.1 mmol/L (3.3-5.1); Sodium 142 mmol/L (135-145)
[2020-12-23 17:26] LABS: D Dimer < 200 NG/ML
[2020-12-23 17:28] LABS: Erythrocyte Sedimentation Rate 2 MM/HR (0-15)
[2020-12-24 20:42] LABS: IgA 132 mg/dL (47-310); IgG 1585 mg/dL (600-1640); IgM 37 mg/dL (50-300); Immunoglobulin G Subclass 1 903 mg/dL (382-929); Immunoglobulin G Subclass 2 465 mg/dL (241-700); Immunoglobulin G Subclass 3 56 mg/dL (22-178); Immunoglobulin G Total 1591 mg/dL (600-1640)
[2020-12-25 18:57] LABS: TS Negative Control Passed; TS Panel A 2; TS Panel B 0; TS Positive Control Passed; TSpotTB Negative (Negative)
== END 2020-12-23 15:33 | disposition home or self-care (01) ==
LOC: HO.LAB 15:32
PROVIDERS: Visit Provider Hospitalist
DX: Z11.1 Encounter for screening for respiratory tuberculosis (principal); R04.2 Hemoptysis; J45.20 Mild intermittent asthma, uncomplicated; R05.3 Chronic cough; R91.8 Other nonspecific abnormal finding of lung field; J31.0 Chronic rhinitis; Z79.899 Other long term (current) drug therapy
CPT/HCPCS: 36415; 80048; 82784; 82785; 85025; 85379; 85652; 86003; 86481

== ENCOUNTER 2020-12-27 08:55 | Outpatient (REF) | payer OTHER, SELFPAY | END 2020-12-27 08:56 | disposition home or self-care (01) | LOC: HO.LNP 08:55 | PROVIDERS: Visit Provider Hospitalist | DX: R04.2 Hemoptysis (principal) | CPT/HCPCS: 87070; 87205 ==

== ENCOUNTER 2020-12-29 15:45 | Outpatient (REF) | payer OTHER, SELFPAY ==
--- NOTE | ~2020-12-29 | XR_ITS ---
EXAMINATION: XR CHEST CLINICAL INFORMATION: Hemoptysis. COMPARISON: Chest done on 08/11/2020. TECHNIQUE: 2 views of the chest were obtained. FINDINGS: No significant abnormality is noted involving the heart, lungs, mediastinum, bony thorax or soft tissues. XR/XR chest 2V IMPRESSION: Unremarkable examination.
== END 2020-12-29 15:46 | disposition home or self-care (01) ==
LOC: HO.XRAY 15:45
PROVIDERS: Visit Provider Hospitalist
DX: R04.2 Hemoptysis (principal)
CPT/HCPCS: 71046; 87070; 87205

== ENCOUNTER → 2021-01-20 15:31 | Outpatient (BNVA) | payer OTHER, SELFPAY | PROVIDERS: Visit Provider Hospitalist | DX: J45.909 Unspecified asthma, uncomplicated (principal); R04.2 Hemoptysis ==

== ENCOUNTER 2021-03-17 15:59 | Outpatient (REF) | payer OTHER, SELFPAY ==
--- NOTE | 2021-03-17 17:30 | PFT_ITS ---
Forced vital capacity 112%, FEV1 115%, FEF 25/75 125%, and MVV is 84. Post bronchodilator therapy, there is no change. Total lung capacity 89%. Residual volume 82%. Diffusion capacity 95. CONCLUSION: All the numbers are in normal range. There is no evidence of obstructive or restrictive pulmonary disease. MD LELA Barreto/SMOOTH / [id number]
== END 2021-03-17 16:00 | disposition home or self-care (01) ==
LOC: HO.RESP 15:59
PROVIDERS: Visit Provider Hospitalist
DX: R06.00 Dyspnea, unspecified (principal); R05.3 Chronic cough
CPT/HCPCS: 94060; 94727; 94729

== ENCOUNTER 2023-05-02 13:10 | Outpatient (REF) | payer OTHER, SELFPAY ==
--- NOTE | ~2023-05-02 | XR_ITS ---
EXAMINATION: XR CHEST CLINICAL INFORMATION: Cough, fatigue, hemoptysis. COMPARISON: 12/29/2020 TECHNIQUE: 2 views of the chest were obtained. FINDINGS: There is no gross pneumothorax. Heart size is normal. No pleural effusion. No focal consolidation to suggest pneumonia. Mild multilevel degenerative changes in the thoracic spine. XR/XR chest 2V IMPRESSION: No evidence of pneumonia.
[2023-05-02 13:39] LABS: MANUAL DIFF FLAG NO
[2023-05-02 14:05] LABS: Basophils Percent Auto 0.7 % (0-2); Eosinophils Absolute Auto 0.2 X10*3/uL (0.0-0.4); Eosinophils Percent Auto 4.8 % (0-4); Hematocrit 42.4 % (42.0-52.0); Imm Gran Abs Auto 0.02 X10*3/uL (0.00-0.03); Imm Gran Pct Auto 0.5 % (0.0-0.4); Lymphocytes Absolute Auto 2.6 X10*3/uL (1.2-4.9); Lymphocytes Percent Auto 58.9 % (20-40); Mean Corpuscular Hemoglobin 27.4 pg (27.0-33.0); Mean Platelet Volume 9.2 fL (9.4-12.4); Monocytes Absolute Auto 0.3 X10*3/uL (0.1-1.2); Monocytes Percent Auto 5.9 % (2-11); Neutrophils Absolute Auto 1.3 x10*3/uL (2.0-8.3); Neutrophils Percent Auto 29.2 % (45-73); Platelet Count 209 X10*3/uL (160-400); Red Blood Count 5.11 X10*6/uL (4.60-5.80); Red Cell Distribution Width 12.8 % (11.0-16.0); White Blood Count 4.4 X10*3/uL (4.8-10.8)
[2023-05-02 14:34] LABS: Alanine Aminotransferase 41 U/L (0-40); Albumin Level 4.2 g/dL (3.5-5.0); Alkaline Phosphatase 77 U/L (39-117); Anion Gap 10 (12-20); Aspartate Amino Transferase 27 U/L (5-37); Bilirubin Total 0.4 mg/dL (0.0-1.0); Blood Urea Nitrogen 11 mg/dL (9-16); Calcium 9.5 mg/dL (8.4-10.2); Carbon Dioxide 31 mmol/L (22-29); Chloride 103 mmol/L (96-108); Estimated Glomerular Filt Rate > 60; Glucose Random 110 mg/dL (60-115); Potassium 4.2 mmol/L (3.3-5.1); Sodium 140 mmol/L (135-145); Total Protein 7.3 g/dL (6.5-8.0)
[2023-05-02 14:51] LABS: Erythrocyte Sedimentation Rate 1 MM/HR (0-15)
[2023-05-02 15:07] LABS: Estimated Average Glucose 114 mg/dL; Hemoglobin A1c % 5.6 % (<6.0)
[2023-05-02 15:21] LABS: Thyroid Stimulating Hormone 2.77 uIU/mL (0.32-4.0)
[2023-05-02 17:34] LABS: Appearance Urine Clear; Color Urine Yellow; Glucose Urine UA Negative (Negative); Leukocyte Esterase Urine Negative (Negative); Nitrite Urine Negative (Negative); Urine Blood Negative (Negative); Urine Ketones Negative (Negative); Urine Protein Negative (Neg-Trace)
[2023-05-03 16:23] LABS: HIV RNA PCR Qn Copies NOT DETECTED copies/mL (NOT DETECTED); HIV RNA PCR Qn Log Copies NOT DETECTED (NOT DETECTED)
[2023-05-04 12:38] LABS: HCV Log PCR <1.18 NOT DETECTED Log IU/mL (NOT DETECTED); HepC Viral Load <15 NOT DETECTED IU/mL (NOT DETECTED)
== END 2023-05-02 13:11 | disposition home or self-care (01) ==
LOC: HO.XRAY 13:10
PROVIDERS: PCP Internal Medicine; Visit Provider Internal Medicine
DX: Z11.4 Encounter for screening for human immunodeficiency virus [HIV] (principal); R05.9 Cough, unspecified; G93.31 Postviral fatigue syndrome; R06.09 Other forms of dyspnea
CPT/HCPCS: 36415; 71046; 80053; 81003; 83036; 84443; 85025; 85652; 87522; 87536

== ENCOUNTER 2023-08-08 10:31 | Outpatient (REF) | payer OTHER, SELFPAY ==
[2023-08-08 12:05] LABS: Alanine Aminotransferase 27 U/L (0-40); Alkaline Phosphatase 69 U/L (39-117); Anion Gap 8 (12-20); Aspartate Amino Transferase 23 U/L (5-37); Bilirubin Total 0.4 mg/dL (0.0-1.0); Blood Urea Nitrogen 11 mg/dL (9-16); Calcium 9.2 mg/dL (8.4-10.2); Carbon Dioxide 29 mmol/L (22-29); Chloride 108 mmol/L (96-108); Cholesterol 144 mg/dL (<200); Estimated Glomerular Filt Rate > 60; Glucose Random 90 mg/dL (60-115); HDL Cholesterol 49 mg/dL (>40); LDL Cholesterol Calculated 86 mg/dL (<100); Potassium 4.1 mmol/L (3.3-5.1); Sodium 141 mmol/L (135-145); Triglycerides 46 mg/dL (<150)
== END 2023-08-08 10:32 | disposition home or self-care (01) ==
LOC: HO.LAB 10:31
PROVIDERS: PCP Internal Medicine; Visit Provider Internal Medicine
DX: Z00.00 Encounter for general adult medical examination without abnormal findings (principal); Z13.1 Encounter for screening for diabetes mellitus; Z13.6 Encounter for screening for cardiovascular disorders; Z12.5 Encounter for screening for malignant neoplasm of prostate
CPT/HCPCS: 36415; 80053; 80061

== ENCOUNTER → 2023-08-28 11:23 | Outpatient (REF) | payer OTHER, SELFPAY ==
--- NOTE | 2023-08-28 11:27 | ECG_ITS ---
Test Reason : PALPITATIONS Blood Pressure : / mmHG Vent. Rate : 057 BPM Atrial Rate : 057 BPM P-R Int : 168 ms QRS Dur : 094 ms QT Int : 418 ms P-R-T Axes : 065 015 001 degrees QTc Int : 406 ms Sinus bradycardia Minimal voltage criteria for LVH, may be normal variant ( Sokolow-Diop ) Septal infarct , age undetermined Abnormal ECG When compared with ECG of 11-AUG-2020 18:59, No significant change was found Referred By: Marty Oneal Electronically Signed By:Jaylon Laird
--- NOTE | 2023-08-28 11:27 | HM_ITS ---
* Total monitoring time 3 days. * Underlying rhythm is sinus with an average rate of 79/Min. About 16% of the time, rate > 100/Min. * Rare supraventricular and ventricular ectopy. * No significant pauses or AV blocks. * Patient marker used once in association with sinus rhythm. * Tiredness/dizziness/fatigue in patient diary associated with sinus rhythm at 66/Min. MTDD
== END ==
LOC: HO.CARD 11:23
PROVIDERS: Visit Provider Internal Medicine
DX: R00.2 Palpitations (principal)
CPT/HCPCS: 93005; 93242

== ENCOUNTER → 2023-08-28 11:27 | Outpatient (BNV) | payer OTHER, SELFPAY | PROVIDERS: Visit Provider Internal Medicine Cardiovascular Disease | DX: I47.10 Supraventricular tachycardia, unspecified (principal) | CPT/HCPCS: 93010; 93244 ==

== ENCOUNTER 2023-09-06 10:37 | Outpatient (REF) | payer OTHER, SELFPAY ==
--- NOTE | ~2023-09-06 | US_ITS ---
EXAMINATION: US LOWER EXTREMITY VENOUS (REFLUX EXAM), BILATERAL CLINICAL INDICATION: Chronic venous insufficiency with lower extremity of varicose veins, pain COMPARISON: None. TECHNIQUE: Color flow triplex imaging and compression Doppler was performed to evaluate both the deep and the superficial systems bilaterally. To evaluate the superficial system, the examination was performed in the upright position. Color-flow Doppler ultrasound and compression ultrasound were utilized. In addition, maneuvers were utilized to demonstrate reflux. FINDINGS: 1. DEEP VENOUS ULTRASOUND OF THE RIGHT LOWER EXTREMITY: Common Femoral Vein: Compressible, normal respiratory variation and augmented flow. Femoral Vein: Compressible, normal color flow and augmentation. Popliteal Vein: Compressible, normal augmentation. Deep Reflux: Deep venous reflux is seen in the popliteal vein measuring 1176 ms There is no evidence of a Tolliver's cyst. 2. SUPERFICIAL ULTRASOUND WITH DOPPLER OF RIGHT LOWER EXTREMITY: GREAT SAPHENOUS VEIN: Saphenofemoral Junction: 0.6 cm; Reflux: 0 ms Proximal Thigh: 0.3 cm; Reflux: 0 ms Mid Thigh: 0.3 cm; Reflux: 0 ms Above Knee: 0.3 cm; Reflux: 0 ms At Knee: 0.4 cm; Reflux: 0 ms Below Knee: 0.4 cm; Reflux: 0 ms Mid Calf: 0.2 cm; Reflux: 0 ms Ankle: 0.2 cm; Reflux: 0 ms DUPLICATED MEDIAL GREAT SAPHENOUS VEIN: Diameter: None imaged Reflux: NA DUPLICATED LATERAL GREAT SAPHENOUS VEIN: Diameter: 0.2 cm Reflux: None SMALL SAPHENOUS VEIN: Saphenopopliteal Junction: 0.2 cm; Reflux: 0 ms Proximal: 0.2 cm; Reflux: 0 ms Distal: 0.2 cm; Reflux: 0 ms VEIN OF GIACOMINI: Size: NA Reflux: NA PERFORATORS: Location: None imaged Size: NA Reflux: NA VARICOSITIES: Location: None significant Size: NA Reflux: NA 3. DEEP VENOUS ULTRASOUND OF THE LEFT LOWER EXTREMITY: Common Femoral Vein: Compressible, normal respiratory variation and augmented flow. Femoral Vein: Compressible, normal color flow and augmentation. Popliteal Vein: Compressible, normal augmentation. Deep Reflux: Deep venous reflux seen in the mid to superficial femoral vein measuring 1284 ms There is no evidence of a Tolliver's cyst. 4. SUPERFICIAL ULTRASOUND WITH DOPPLER OF LEFT LOWER EXTREMITY: GREAT SAPHENOUS VEIN: Saphenofemoral Junction: 0.8 cm; Reflux: 0 ms Proximal Thigh: 0.3 cm; Reflux: 0 ms Mid Thigh: 0.2 cm; Reflux: 0 ms Above Knee: 0.2 cm; Reflux: 0 ms At Knee: 0.2 cm; Reflux: 0 ms Below Knee: 0.3 cm; Reflux: 0 ms Mid Calf: 0.2 cm; Reflux: 0 ms Ankle: 0.2 cm; Reflux: 0 ms DUPLICATED MEDIAL GREAT SAPHENOUS VEIN: Diameter: 0.4 cm Reflux: None DUPLICATED LATERAL GREAT SAPHENOUS VEIN: Diameter: None imaged Reflux: NA SMALL SAPHENOUS VEIN: Saphenopopliteal Junction: 0.2 cm; Reflux: 0 ms Proximal: 0.2 cm; Reflux: 0 ms Distal: 0.1 cm; Reflux: 0 ms VEIN OF GIACOMINI: Size: NA Reflux: NA PERFORATORS: Location: None significant Size: NA Reflux: NA VARICOSITIES: Location: None significant Size: NA Reflux: NA US/US venous duplex LE BI IMPRESSION: Right: No significant venous insufficiency or reflux in the great saphenous vein or small saphenous vein. There is mild to moderate reflux in the popliteal vein. Left: No significant venous insufficiency or reflux in the great saphenous vein or small saphenous vein. There is mild to moderate reflux in the superficial femoral artery
== END 2023-09-06 10:38 | disposition home or self-care (01) ==
LOC: HO.US 10:37
PROVIDERS: PCP Internal Medicine; Visit Provider Surgery Vascular Surgery
DX: I83.893 Varicose veins of bilateral lower extremities with other complications (principal)
CPT/HCPCS: 93970

== ENCOUNTER → 2023-10-12 09:00 | Outpatient (REF) | payer OTHER, SELFPAY ==
--- NOTE | 2023-10-12 09:03 | CA_ITS ---
Transthoracic Echocardiogram Patient (Last, First, Middle): Josh Morley, Gender: Male Date of : 1965 Age: 58 Procedure Date: 10/12/2023 Procedure Type: Transthoracic Echocardiogram Location: OP Height: 177.8 cm Weight: 90.72 kg BSA: 2.09 m2 Heart Rate: bpm BP: 112 / 72 mmHg Supplier Quality Engineering Manager: TO Referring MD: Marty Oneal MD Symptoms: R00.0 - Tachycardia, unspecified Study Quality: Adequate Conclusions: - Normal left ventricular size, thickness, systolic function, and wall motion. The visually estimated ejection fraction is between 60-65%. Diastolic function is normal for age. - Normal right ventricular cavity size and systolic function. Findings Left Ventricle Normal left ventricular size, thickness, systolic function, and wall motion. The visually estimated ejection fraction is between 60-65%. Diastolic function is normal for age. Right Ventricle Normal right ventricular cavity size and systolic function. Atria The left atrium is normal in size. The right atrium is normal in size. Aortic Valve Normal aortic valve structure and function. There is no aortic valve stenosis. There is no aortic valve regurgitation. Mitral Valve The mitral valve appears normal. There is trace mitral valve regurgitation. There is no mitral valve stenosis. Pulmonic Valve The pulmonic valve is normal. There is no pulmonic valve regurgitation. Tricuspid Valve Normal tricuspid valve structure. There is trace tricuspid valve regurgitation. Tricuspid regurgitation envelope is inadequate for calculation of right ventricular systolic pressure. Normal right atrial pressure. Great Vessels All visible segments of the aorta are normal in size. The visualized portions of the pulmonary artery and branches are normal. Venous The inferior vena cava is normal in size and collapses greater than 50% with inspiration. Pericardium/Pleural There is no evidence of pericardial effusion. Prior Study Comparison No significant change compared to prior study dated: 11/13/2018. Measurements 2D Linear Measurements IVSd: 0.85 0.6-0.9/0.6-1.0 cm LVIDd: 5.11 3.9-5.3/4.2-5.9 cm LVIDd Index: 2.44 2.4-3.2/2.2-3.1 cm/m2 LVIDs: 3.31 2.0-3.6 cm LVPWd: 0.65 0.7-1.1 cm LA Diam: 3.80 2.7-3.8/3.0-4.0 cm LAIDs Index: 1.82 1.5-2.3 cm/m2 LV Mass: 161.86 67-162/88-224 g LV Mass Index: 77.44 43-95/49-115 g/m2 LVOT Diam: 2.30 3.0+(-)1.3 cm 2D Systolic Function EF 4C: 62.80 >55% EF 2C: 62.30 >55% EF BiP: 61.60 >55% Mitral Valve MV Pk E: 0.75 MV PK A: 0.51 MV Decel Time: 186.00 E/A: 1.50 E'Lateral: 9.90 E'Medial: 7.07 E/E' Med: 10.70 E/E' Lat: 7.60 PHT: 55.00 MVA PHT: 4.00 Decel [place]: 4.05 Aortic Valve AoV Pk Martin: 1.16 AoV Mn Martin: 0.80 AoV VTI: 0.24 AoV Pk Grad: 5.00 Aov Mn Grad: 3.00 SALMA Cont.VTI: 3.40 LVOT LVOT Pk Martin: 0.95 LVOT Mn Martin: 0.59 LVOT VTI: 0.19 LVOT Pk Grad: 4.00 LVOT Mn Grad: 2.00 LVOT Diam: 2.30 LVOT Area: 4.15 Diastolic Function MV Pk E: 0.75 MV Pk A: 0.51 E/A: 1.50 E'Medial: 7.07 E/E' Med: 10.70 E' Laterial: 9.90 E/E' Lat: 7.60 Right Ventricle TAPSE (mm): 21.70 TVS' Martin: 10.10 Tricuspid Valve RA Press: 3.00 Great Vessels Aorta Sinus of Valsalva: 3.22 2.0-3.[address] Ridge: 2.81 1.7-3.4 cm Ao Asc: 3.20 2.1-3.4 cm Ao Arch: 3.10 Updated in Other Vendor System with Status of Final Jaylon Laird MD electronically signed on 10/14/2023 10:49:19 PM with status of Final
== END ==
LOC: HO.CARD 09:00
PROVIDERS: PCP Internal Medicine; Visit Provider Internal Medicine
DX: R00.0 Tachycardia, unspecified (principal); R42 Dizziness and giddiness
CPT/HCPCS: 93306

== ENCOUNTER → 2023-10-12 09:03 | Outpatient (BNV) | payer OTHER, SELFPAY | PROVIDERS: PCP Internal Medicine; Visit Provider Internal Medicine Cardiovascular Disease | DX: R00.0 Tachycardia, unspecified (principal) | CPT/HCPCS: 93306 ==

== ENCOUNTER 2023-10-18 11:06 | Outpatient (AMB) | payer OTHER, SELFPAY ==
[2023-10-18 11:06] VITALS: BP 126/78; BMI 28.7
--- NOTE | 2023-10-18 11:06 | MHC.OFFVIS ---
Vital Signs 10/18/23 11:06 Height 5 ft 10 in Weight 200 lb BMI 28.7 BP 126/78 Blood Pressure Location Rt brachial Position Sitting Intake Visit Reasons: Follow up [facility] 09/06/2023 Intake Note: Pt presents to the office today for a follow up [facility] 09/06/23. Pt states he notices his right leg swells from the knee to the ankle. Pt states his right leg is worse than the left. Allergies No Known Allergies [No Known Allergies*] Allergy (Verified 10/18/23 11:10) HPI HPI Follow up [facility] 09/06/2023: Details: Very pleasant 58-year-old gentleman patient presents for painful varicose veins. Complaints include pain over varicosities, swelling of lower extremities, cramping, fatigue, and heaviness of the lower extremities. 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 It is noted more so in right leg. In particular he has a cluster of varicosities on the right calf which has been affecting him. Patient denies any previous venous surgery or injections. Patient denies any history of DVT/ PE. Patient denies any history of phlebitis. Trial of compression includes - [id number] They now present for vascular evaluation regarding their varicose veins. [facility] Medical History (Updated 10/19/23 @ 10:28 by Eusebio Mittal MD) Seasonal allergies IgM deficiency JEREMY (obstructive sleep apnea) Chronic rhinitis Pulmonary nodules Chronic cough Hemoptysis Asthma Gastritis Discomfort in chest JEREMY (obstructive sleep apnea) Surgical History History of endoscopy S/P cardiac cath Family History Father No problems noted. Mother No problems noted. Social History Second Hand Smoke Exposure: No Review of Systems Const Reports as per HPI ENT Reports no additional complaints Card Denies chest pain, Denies chest pain at rest and Denies chest pain with activity Resp Denies chest congestion and Denies cough GI Reports no additional complaints Musc Details: pain over varicosities, aching of lower extremities, swelling, cramping, heaviness and tiredness, itching Denies abnormal gait Skin/Breast Reports pruritus and Denies wounds Neuro Reports no additional complaints and Denies abnormal gait Psych Denies no additional complaints Physical Exam Vital Signs: Last Vital Signs BP 126/78 10/18/23 11:06 BMI result Body Mass Index 28.7 Const General: cooperative, healthy appearing and comfortable Orientation/consciousness: oriented to person, oriented to place and oriented to time Neck Carotids: no bruits Chest Chest palpation & inspection: normal inspection of the chest and normal palpation of entire chest wall Resp Effort & Inspection: normal respiratory effort and able to speak in complete sentences Cardio Rate: regular rate Heart sounds: S1 normal heart sound present and S2 normal heart sound present Peripheral pulses: Peripheral pulses 2+ throughout GI Inspection: Yes normal to inspection Skin Other: +2 edema, large rope-like varicosities greater than 4 mm right calf CEAP Classification C4 - skin color changes Ep - Etiology Primary As - superficial veins P - reflux General skin exam: dry skin Neuro General: oriented to person, oriented to place and oriented to time Extrem Right lower extremity: full ROM, normal capillary refill and edema Left lower extremity: full ROM, normal capillary refill and edema Psych Mental Status: mental status grossly normal Results Reviewed Results Reviewed: Brief summary of venous insufficiency testing is as follows: right great saphenous vein: negative right small saphenous vein: negative right accessory vein: none present left great saphenous vein: negative left small saphenous vein: negative left accessory vein: none present Please note there is no evidence of any venous aneurysms or significant tortuosity Assessment & Plan Assessment & Plan (1) Varicose veins of right lower extremity with inflammation: Code(s): I83.11 - Varicose veins of right lower extremity with inflammation Category: Medical Plan: This patient has varicose veins with inflammation. They continue to be a source of discomfort for the patient. The patient has tried conservative treatment with compression, leg elevation and exercise program for over 3 months time. They have been compliant with all treatment. This has provided minimal relief for the patient. I do not anticipate this course of treatment will alter the underlying etiology. The patient has been scheduled for lower extremity venous treatment inclusive of --- right leg microphlebectomy. Risks, benefits, and complications of this procedure has been discussed in detail with the patient including but not limited to bleeding, infection, and the development of a DVT. The patient has demonstrated a clear understanding and has consented. We will schedule the patient as soon as possible. Thank you for allowing us to participate in this patient's care. If there are any questions or concerns please do not hesitate to contact us. Coding Level of Care Code New Pt Level 4 (92877) Diagnoses Varicose veins of right lower extremity with inflammation I83.11
== END 2023-10-18 11:32 | disposition home or self-care (01) ==
PROVIDERS: PCP Internal Medicine; Visit Provider Surgery Vascular Surgery
DX: I83.11 Varicose veins of right lower extremity with inflammation (principal)
CPT/HCPCS: 99204

== ENCOUNTER → 2023-10-18 11:06 | Outpatient (BNVA) | payer OTHER, SELFPAY | PROVIDERS: PCP Internal Medicine; Visit Provider Surgery Vascular Surgery ==

== ENCOUNTER 2023-12-07 08:04 | Outpatient (AMB) | payer OTHER, SELFPAY ==
--- NOTE | 2023-12-07 08:27 | MHC.OFFVIS ---
Intake Visit Reasons: Right LE Micro Accompanied by: Self / Same As Patient Allergies No Known Allergies [No Known Allergies*] Allergy (Verified 12/07/23 08:27) PFSH Medical History (Reviewed 12/07/23 @ 08: by Abby Tapia) Seasonal allergies IgM deficiency JEREMY (obstructive sleep apnea) Chronic rhinitis Pulmonary nodules Chronic cough Hemoptysis Asthma Gastritis Discomfort in chest JEREMY (obstructive sleep apnea) Surgical History History of endoscopy S/P cardiac cath Family History (Reviewed 12/07/23 @ 08: by Abby Tapia) Father No problems noted. Mother No problems noted. Social History (Reviewed 12/07/23 @ 08: by Abby Tapia) Second Hand Smoke Exposure: No Office Procedures Vascular Office Procedure Details Details: Diagnosis: Right Leg varicose veins with inflammation Procedure: Right leg Microphlebectomy Anesthesia: Local Infiltration 10 cc, Tumescent: 0 cc. Varicose veins were marked in the standing position on the right leg and the patient was then placed in the prone position. The right lower extremity was prepared and draped to allow knee flexion in the sterile field. The patient had large superficial varicose veins with significant symptoms of pain. It was therefore determined to perform microphlebectomies of the clusters of varicose veins. The patient had bulging varicose veins which were previously marked in the standing position. A small stab incision was made longitudinally directly overlying the varicose vein in the calf and the varicose vein was grasped with a hemostat aided by a vein hook. It was then dissected as far proximally and distally as possible and avulsed. A total of 7 stab incisions were made and the procedure of stab phlebectomies was repeated 7 times. Hemostasis was checked and stab incision sites were closed with steri-strips and sterile dressing was given with gauze and krilex wrap followed by an marah bandage. There were no complications and blood loss was minimal. Post-Op instructions were given and a follow-up appointment was recommended. 88487 - Phleb Veins, Extrem - up to 20 All charges added?: Procedure code (CPT) selection complete Assessment & Plan Assessment & Plan (1) Varicose veins of right lower extremity with inflammation: Comment: 12/07/2023 Code(s): I83.11 - Varicose veins of right lower extremity with inflammation Category: Medical Plan: See op note Coding Level of Care Code Procedure Only Diagnoses Varicose veins of right lower extremity with inflammation I83.11 CPT Codes Details - Vascular 5: 51666 - Phleb Veins, Extrem - up to 20 ([id number])
== END 2023-12-07 09:32 | disposition home or self-care (01) ==
PROVIDERS: PCP Internal Medicine; Visit Provider Surgery Vascular Surgery
DX: I83.11 Varicose veins of right lower extremity with inflammation (principal)
CPT/HCPCS: 37765

== ENCOUNTER → 2023-12-07 08:04 | Outpatient (BNVA) | payer OTHER, SELFPAY | PROVIDERS: PCP Internal Medicine; Visit Provider Surgery Vascular Surgery | DX: I83.11 Varicose veins of right lower extremity with inflammation (principal) | CPT/HCPCS: 37765 ==

== ENCOUNTER 2023-12-20 12:58 | Outpatient (AMB) | payer OTHER, SELFPAY ==
--- NOTE | 2023-12-20 13:04 | MHC.OFFVIS ---
Intake Visit Reasons: 2 wk follow up Right Micro 12/07/23 Intake Note: Patient presents for right micro follow up. Steri strips still on. Patient states he is experiencing some itching. Accompanied by: Self / Same As Patient Allergies No Known Allergies [No Known Allergies*] Allergy (Verified 12/20/23 13:06) HPI HPI 2 wk follow up Right Micro 12/07/23: Details: Very pleasant 58-year-old gentleman presents for follow-up status post right lower extremity microphlebectomy. He reports that he is doing extremely well postprocedure. No postprocedure discomfort. He notes that his pain and discomfort have improved. He now presents for routine postprocedure follow-up FORMERLY [facility], [facility] Medical History Seasonal allergies IgM deficiency JEREMY (obstructive sleep apnea) Chronic rhinitis Pulmonary nodules Chronic cough Hemoptysis Asthma Gastritis Discomfort in chest JEREMY (obstructive sleep apnea) Surgical History History of endoscopy S/P cardiac cath Family History Father No problems noted. Mother No problems noted. Social History Second Hand Smoke Exposure: No Review of Systems Const All systems reviewed & are unremarkable except as noted in HPI and below Reports no additional complaints ENT Reports Normal hearing present Card Denies chest pain, Denies chest pain at rest, Denies chest pain with activity and Denies pedal edema Resp Denies cough GI Denies abdominal pain Musc Denies abnormal gait, Denies muscle cramps and Denies radiating pain into limb Skin/Breast Denies skin ulcer and Denies wounds Neuro Reports Normal hearing present and Denies abnormal gait Psych Reports no additional complaints Physical Exam Const General: cooperative, healthy appearing and comfortable Orientation/consciousness: oriented to person, oriented to place and oriented to time HEENT Head: Yes normal to inspection Neck Neck: Yes normal visual inspection Carotids: no bruits Chest Chest palpation & inspection: normal inspection of the chest Resp Effort & Inspection: normal respiratory effort and able to speak in complete sentences Auscultation: clear to auscultation bilaterally, no crackles, no rales, no rhonchi and no wheezes Cardio Rate: regular rate Rhythm: regular rhythm Heart sounds: S1 normal heart sound present and S2 normal heart sound present Bruits: no carotid bruits Peripheral pulses: Peripheral pulses 2+ throughout GI Inspection: Yes normal to inspection Skin Other: Right lower extremity incisions well healed Wounds: no wounds Hair: normal Neuro General: oriented to person, oriented to place and oriented to time Cranial nerves: Yes CN's II-XII intact bilaterally and Yes Normal hearing present Cognition (Neuro): normal cognition Motor exam (neuro): 5/5 motor strength present throughout Extrem Other: venous exam: No significant superficial varicosities or spider telangiectasias, minimal edema General: No clubbing, No cyanosis and No edema Psych Appearance: grossly normal Mental Status: mental status grossly normal Speech and movement: Normal speech and movement present Assessment & Plan Assessment & Plan (1) Varicose veins of right lower extremity with inflammation: Comment: 12/07/2023 - right leg microphlebectomy Code(s): I83.11 - Varicose veins of right lower extremity with inflammation Category: Medical Plan: The patient has done extremely well with all venous treatments. Patient's may often experience postprocedure phlebitic episodes and I have discussed with the patient use of warm compresses and NSAIDS if tolerated for pain discomfort. In addition, I have discussed continued conservative measures including use of compression, leg elevation, and exercise. The patient was also given an information sheet regarding appropriate use of compression stockings and future purchases. Thank you for allowing us to care for your patient with venous disease. Coding Level of Care Code Global (09612) Diagnoses Varicose veins of right lower extremity with inflammation I83.11
== END 2023-12-20 13:13 | disposition home or self-care (01) ==
LOC: HO.HVS 12:58
PROVIDERS: PCP Internal Medicine; Visit Provider Surgery Vascular Surgery
DX: I83.11 Varicose veins of right lower extremity with inflammation (principal)
CPT/HCPCS: 99024

== ENCOUNTER → 2023-12-20 12:58 | Outpatient (BNVA) | payer OTHER, SELFPAY | PROVIDERS: PCP Internal Medicine; Visit Provider Surgery Vascular Surgery ==

== ENCOUNTER 2024-03-18 12:11 | Day surgery (SDC) | payer OTHER, SELFPAY ==
--- NOTE | 2024-03-17 14:00 | HO.ANESPROP2 ---
HPI - Anesthesia Eval Consult details Narrative: 58yo M for Colonoscopy PMFSH Active Problems Active Problems: All Active Problems Varicose veins of right lower extremity with inflammation (Acute) Seasonal allergies (Acute) IgM deficiency (Acute) JEREMY (obstructive sleep apnea) (Acute) Chronic rhinitis (Acute) Pulmonary nodules (Acute) Chronic cough (Acute) Hemoptysis (Acute) Asthma (Acute) Precordial chest pain (Acute) S/P cardiac cath (Acute) Discomfort in chest (Acute) Past Medical History Medical History Seasonal allergies IgM deficiency JEREMY (obstructive sleep apnea) Chronic rhinitis Pulmonary nodules Chronic cough Hemoptysis Asthma Gastritis Discomfort in chest JEREMY (obstructive sleep apnea) Family History Family History Father No problems noted. Mother No problems noted. Surgical History Surgical History History of endoscopy S/P cardiac cath Social History Social History Second Hand Smoke Exposure: No Meds Allergies Allergy/AdvReac Type Severity Reaction Status Date / Time No Known Allergies Allergy Verified 12/20/23 13:06 [No Known Allergies*] Home Medications ?Medication ?Instructions ?Recorded ?Confirmed ?Last Taken ?Type omeprazole 20 mg capsule,delayed 20 mg PO DAILY PRN 02/04/20 05/12/20 Unknown History release bupropion HCl 150 mg 24 hr tablet, 150 mg PO DAILY 10/18/23 Unknown History extended release cariprazine 1.5 mg capsule 1.5 mg PO DAILY 10/18/23 Unknown History (Vraylar) duloxetine 60 mg capsule,delayed 60 mg PO DAILY 10/18/23 Unknown History release trazodone 50 mg tablet 50 mg PO BEDTIME 10/18/23 Unknown History Assessment and Plan Assessment Anesthesia Assessment: Chart Reviewed
[2024-03-18 12:22] VITALS: BP 128/77; PULSE 73; RESP 16; TEMP 36.8; O2SAT 98; BMI 29.4
--- NOTE | 2024-03-18 12:32 | MHC.SHP ---
Pre-Procedural Eval Section A - 24 Hr Update-Section A only Date of Service: 03/18/24 Section B - Complete if H&P > 30 days Chief Complaint: screening Relevant Family History (Specify if Yes): No Relevant Social History: None Present Medications: see Short Stay Collaborative assessment Medical History: Significant History (Seasonal allergies IgM deficiency JEREMY (obstructive sleep apnea) Chronic rhinitis Pulmonary nodules Chronic cough Hemoptysis Asthma Gastritis Discomfort in chest JEREMY (obstructive sleep apnea)) History of Previous Operations: Relevant previous surgery/procedure and date(s) (History of endoscopy S/P cardiac cath) Allergies: Allergies Allergy/AdvReac Type Severity Reaction Status Date / Time No Known Allergies Allergy Verified 12/20/23 13:06 [No Known Allergies*] Review of Systems Sugical H&P ROS: Negative: Constitution, Cardiovascular, Respiratory, Neurological, Psychiatric, Hem-Onc, Allergic/Immunologic, Gastrointestinal, Genitourinary, Musculoskeletal, Integumentary, Endocrine and Eyes/Ears/Nose/Throat Exam Surgical H&P Exam: Normal: HEENT, Normal: Heart, Normal: Lungs, Normal: Extremities, Normal: Abdomen, Normal: Skin and Normal: Neurological Plan Diagnosis/Plan: Unchanged I have reviewed the history and physical and performed a pertinent physical examination on my patient. No changes have occurred unless specified. Time Spent With Patient Time: Total time managing care of this patient today ____ minutes.
[2024-03-18] MEDS: Lactated Ringers 1,000 ML 100 ML IVCONT (12:38)
--- OUTSIDE RECORDS SUMMARY | 2024-03-18 13:06 | XMS_ITS | Clinical Summary ---
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 Name Role Phone Unavailable Primary Care Provider Unavailabl e Social History Tobacco Use Types Packs/Day Years Used Date Smoking Tobacco: Never Assessed Sex and Gender Information Value Date Recorded Sex Assigned at Not on file Gender Identity Not on file Sexual Orientation Not on file Plan of Treatment Health Maintenance Due Date Last Done Comments DTaP,Tdap,and Td Vaccines (1 - Tdap) 09/15/1982 Zoster Vaccines (1 of 2) 09/15/2013 Cholesterol Screening (Lipid Panel) 01/22/2022 Colorectal Cancer Screening: Colonoscopy 01/22/2022 Depression Screening 01/22/2022 HIV Screening 01/22/2022 Hepatitis C Screening 01/22/2022 Social Influencers of Health Screening 01/22/2022 COVID-19 Vaccine ( - 2023-2 5 season) 2023 Influenza Vaccine (#1) 2023 RSV Immunization Patients 60 + Years Old (1 - 1-dose 75+ series) 09/15/2038 HIB Vaccines Aged Out No longer eligi ble based on patient's age to complete this topic HPV Vaccines Aged Out No longer eligi ble based on patient's age to complete this topic Hepatitis A Vaccines Aged Out No long er eligible based on patient's age to complete this topic Hepatitis B Vaccines Aged Out No long er eligible based on patient's age to complete this topic IPV Vaccines Aged Out No longer eligi ble based on patient's age to complete this topic MMR Vaccines Aged Out No longer eligi ble based on patient's age to complete this topic Meningococcal ACWY Vaccine Aged Out N o longer eligible based on patient's age to complete this topic Pneumococcal Vaccine: Pediat rics (0 to 5 Years) and At-Risk Patients (6 to 64 Years) Aged Out No longer eligible b ased on patient's age to complete this topic RSV Immunization Patients Un manasa 20 months Aged Out No longer eligible b ased on patient's age to complete this topic Varicella Vaccines Aged Out No longer eligible based on patient's age to complete this topic
--- OUTSIDE RECORDS SUMMARY | 2024-03-18 13:06 | XMS_ITS | Patient Health Record ---
Author Organization [facility] Address [address] [place] [id number] Care Team Providers Care Parts Analyst Name Role Phone Kenan Franco Primary Care Provider Timur Neumann Jr [phone] REASON FOR REFERRAL No Information MEDICATIONS Medication SIG (Take, Route, Fr equency, Duration) Notes Start Date End Date Status Tylenol Active Ibuprofen PRN Active Omeprazole 40 MG TAKE 1 CAPSULE BY [facility] EVERY DAY for 90 Active Multi Vitamin - 1 tablet Orally Once a day for 30 day(s) Active Loratadine PRN Active Tums Active IMMUNIZATIONS Vaccine Route Administration Date Status Comme nts Influenza Unknown 12/31/2019 Administered SOCIAL HISTORY Tobacco Use: Social History Observation Description Date Details (start date - stop date) Never Smoker NA - NA Sex Assigned At : Social History Observation Description Sex Assigned At Unknown Tobacco Use/Smoking Question Answer Notes Patient is a nonsmoker Alcohol Screen Question Answer Notes Did you have a drink containing alcohol in the p ast year? Yes Points 0 Interpretation Negative PROBLEMS Problem Type ICD Code Onset Dates Problem Status W/U Status Risk SNOMED Code Notes Problem GERD without esophagitis (K21.9) Active confirmed 628035034 Problem Chest pain, unspecified type (R07.9) Active confirmed 45533916 PLAN OF TREATMENT Future Test Test Name Order Date UPPER GI ENDOSCOPY 02/06/2020 Insurance Providers Payer Name Payer Address Payer Phone Subscriber Number Group Number Insured Name Patient Relationship to Insured Coverage Start Date Coverage End Date [employer] [address] [address] [place] [address] [id number] POOJA TORRES Self - patient is the insured MEDICAL (GENERAL) HISTORY Medical History History ICD Code seasonal allergies GERD colonoscopy 2016, history polyps five-ye ar followup 2021 Surgical History Surgery Date(Month/Year)
--- NOTE | 2024-03-18 13:22 | P.OPN-COLO_ITS ---
Colonoscopy Operative Note Operative Note Date of Service: 03/18/24 Narrative: Operative Information Procedure Description: Colonoscopy Indication: Screening Anesthesia: MAC COLONOSCOPY Instrument: Olympus variable stiffness pediatric scope 190L Colonoscopy Monitoring: Vital signs and clinical assessment, continuous EKG monitoring, Pulse oximetry, Carbon Dioxide monitoring and blood pressure monitoring were done throughout the procedure. Colon withdrawal time was 12 minutes. Procedure: The patient was placed in the left lateral decubitis position and pre-procedure medications were administered. After a digital rectal examination of the ano-rectum, the video colonoscope was inserted into the rectum and advanced through the colon to the cecum/TI. The colonoscope was slowly withdrawn in a retrograde panoramic fashion and the colon mucosa was carefully examined including a retroflexed view of the rectum. Findings and interventions are described below. Procedure Difficulty: moderate Findings: Terminal Ileum-not intubated due to looping Cecum: 4-5 mm sessile polyp removed with cold forceps, also 6-8 mm sessile polyp removed with cold snare Ascending Colon: few tics noted Transverse Colon - 3-4 mm sessile polyp removed with cold forceps Descending Colon:normal Sigmoid Colon:6-8 mm sessile polyp removed with cold snare, mild to moderate diverticulosis noted Rectum: Retroflexion with small internal hemorrhoids seen, grade I Anorectum - normal Intervention: cold snare and cold forceps Colon preparation: [place] Bowel Preparation Scale Right colon; 2 Transverse colon: 2 Left colon; 2 (0 = Unprepared colon segment with mucosa not seen due to solid stool that cannot be cleared. 1 = Portion of mucosa of the colon segment seen, but other areas of the colon segment not well seen due to staining, residual stool and/or opaque liquid. 2 = Minor amount of residual staining, small fragments of stool and/or opaque liquid, but mucosa of colon segment seen well. 3 = Entire mucosa of colon segment seen well with no residual staining, small fr agments of stool or opaque liquid) Impression and Post Procedure Diagnosis: diverticulosis colon polyps x 4 internal hemorrhoids Plan: High fiber diet leaflet Avoid straining at stool, epsom salts and sitz bath, anusol supps or cream Repeat Colonoscopy in 5 years due to polyps or earlier if clinically indicated Above findings were reviewed with the patient and relevant handouts were provided if indicated.
[2024-03-18 13:30] VITALS: BP 97/58; PULSE 70; RESP 14; TEMP 36.4; O2SAT 98
[2024-03-18 13:46] VITALS: BP 115/70; PULSE 65; RESP 16; O2SAT 98
[2024-03-18 14:00] VITALS: BP 121/80; PULSE 61; RESP 18; TEMP 36.2; O2SAT 99
== END 2024-03-18 14:23 | disposition home or self-care (01) ==
PROVIDERS: PCP Internal Medicine; Visit Provider Internal Medicine Gastroenterology
PROC: 0DJD8ZZ Inspection of Lower Intestinal Tract, Via Natural or Artificial Opening Endoscopic (ICD-10-PCS; CPT 45378; principal; 2024-03-18 13:00)
DX: Z12.11 Encounter for screening for malignant neoplasm of colon (principal); D12.5 Benign neoplasm of sigmoid colon; K63.5 Polyp of colon; K57.30 Diverticulosis of large intestine without perforation or abscess without bleeding; K64.0 First degree hemorrhoids; K29.70 Gastritis, unspecified, without bleeding; D80.4 Selective deficiency of immunoglobulin M [IgM]; J45.909 Unspecified asthma, uncomplicated; R05.3 Chronic cough; G47.33 Obstructive sleep apnea (adult) (pediatric); R91.8 Other nonspecific abnormal finding of lung field; Z79.899 Other long term (current) drug therapy
CPT/HCPCS: 45385; 45380; 88305; J2704

== ENCOUNTER → 2024-03-18 12:11 | Outpatient (BNV) | payer OTHER, SELFPAY | PROVIDERS: PCP Internal Medicine; Visit Provider Internal Medicine Gastroenterology | DX: Z12.11 Encounter for screening for malignant neoplasm of colon (principal); D12.5 Benign neoplasm of sigmoid colon; K63.5 Polyp of colon; K57.90 Diverticulosis of intestine, part unspecified, without perforation or abscess without bleeding; K64.0 First degree hemorrhoids | CPT/HCPCS: 45380; 45385 ==